=== PATIENT | female | born 1950 | race Caucasian/White ===

== ENCOUNTER → 2023-11-28 07:14 | Outpatient (REF) | payer MEDICARE, OTHER, SELFPAY | LOC: MRI 07:14 | PROVIDERS: ATTENDING PHYSICIAN Orthopaedic Surgery; FAMILY PHYSICIAN Internal Medicine | DX: M51.36 Other intervertebral disc degeneration, lumbar region (principal) | CPT/HCPCS: 72148 ==

== ENCOUNTER 2023-12-06 09:41 | Emergency (ER) | payer MEDICARE, OTHER, SELFPAY ==
--- NOTE | 2023-12-06 09:54 | ED.MUSCINJ ---
HPI-Injury
General
Chief Complaint: Musculo-Skeletal Complaint
Source: patient
Exam Limitations: none
Time Seen by Provider: 12/06/23 09:48
History of Present Illness-Injury
Initial Injury comments:
73-year-old female presents complaining of right ankle and foot pain starting this morning. She twisted her ankle going up in her garage. She notes pain and swelling to the lateral aspect of the foot and ankle. No other complaints at this time
Past History
Past History
ED Past Medical History: None and Other (Mitral valve prolapse)
ED Past Surgical History: Other (Hernia D&C)
Social History
Tobacco: Non-smoker
Alcohol: Occasional
Drug: None
Personal:
Living: with family
Employment: Employed
Family History
Family History: Hypertension; Negative Early CAD
Phy Exam
Physical Exam
Physical Exam:
General: Well-appearing female no acute respiratory distress
Musculoskeletal exam: Right foot and ankle ecchymotic swollen and tender over the lateral aspect. The distal fibula is tender the lateral foot is tender. No deformities. The medial malleolus is nontender. She is able to dorsiflex and
plantarflex. Resisted eversion of the foot reproduces pain
Vascular: 2+ dorsalis pedis pulse right foot
Injury Course
Orders/Labs/Results
Orders:
Orders
12/06/23 09:53
CR Ankle - Right Min 3 Views * Urgent
Comment:
Reason For Exam: pain, lateral ankle
CR Foot - Right Min 3 Views Urgent
Comment:
Reason For Exam: pain, lateral foot
12/06/23 11:16
Ortho Boot Right- Treatment ONCE
Short or tall?: Tall
MDM/Problems Addressed
Differential Diagnosis Includes:
Right foot pain and ankle pain and swelling. Consider sprain versus fracture versus tendon injury
X-rays right foot and ankle
*Critical Care Note
Total Time (30-74mins, 75-104mins- exclusive of procedures): Not Applicable
Update Note
Update Note:
X-rays of the right ankle and foot were personally visualized and demonstrate an avulsion fracture off the dorsal aspect of the midfoot. Radiology report agrees. There is no fracture of the ankle otherwise. I do suspect this is an acute injury
given the ecchymosis and swelling. Will place patient in an orthopedic boot and have her follow-up with orthopedic
ED Attending Note
-
Portions of this chart may have been created with voice recognition software.� Occasional wrong word or��sound alike� substitutions may have occurred due to the inherent limitations of voice recognition software.
Discharge Plan
Departure
Patient Disposition: Home (Routine Discharge)
Date of Disposition: 12/06/23
Time of Disposition: 11:17
Patient with high blood pressure during this ER visit?: No
Discharge Problem:
Foot fracture, right
Instructions: Muscle and Bone Pain (DC)
Prescriptions:
No Action
alum-mag hydroxide-simeth [Mag-Al Plus] 1 ML suspension
10 - 15 ml PO TID Qty: 6 0RF
omeprazole [Prilosec] 20 MG capsule,delayed release(DR/EC)
20 mg PO DAILY Qty: 20 0RF
Referrals:
Perez Yarbrough MD [Active] -
Jian Dye MD [Family Provider] -
Activity Restrictions/Additional Instructions:
Use boot when ambulating. Elevate for swelling. Continue with ibuprofen and Tylenol. Follow-up with orthopedics
Interventions
Interventions:
*Risk Screen - Suicide Last Done: 12/06/23 09:43
*General Assessment Last Done: 12/06/23 09:43
*Neglect/Abuse Screening Last Done: 12/06/23 09:43
ED- Fall Risk Assessment Last Done: 12/06/23 09:51
*ED COVID-19 Vaccine History Last Done: 12/06/23 09:43
ED-Musculoskeletal Assessment Last Done: 12/06/23 09:50
Discharge Date and Time
Print Language: FRISIAN
--- NOTE | 2023-12-06 09:58 | EDRN ---
Pt states she cannot use crutches or a walker d/t shoulder surgery
[2023-12-06 09:59] VITALS: BP 123/63
== END 2023-12-06 11:58 | disposition home or self-care (01) ==
LOC: EMR 09:41
PROVIDERS: EMERGENCY PHYSICIAN Emergency Medicine; FAMILY PHYSICIAN Internal Medicine
DX: S92.901A Unspecified fracture of right foot, initial encounter for closed fracture (principal); S90.31XA Contusion of right foot, initial encounter; X50.1XXA Overexertion from prolonged static or awkward postures, initial encounter; Y92.008 Other place in unspecified non-institutional (private) residence as the place of occurrence of the external cause; I34.1 Nonrheumatic mitral (valve) prolapse; Z91.041 Radiographic dye allergy status
CPT/HCPCS: 99283; 73610; 73630

== ENCOUNTER → 2024-01-25 14:12 | Outpatient (REF) | payer MEDICARE, OTHER, SELFPAY | LOC: HWRAD 14:12 | PROVIDERS: ATTENDING PHYSICIAN Obstetrics & Gynecology; FAMILY PHYSICIAN Internal Medicine | DX: Z78.0 Asymptomatic menopausal state (principal) | CPT/HCPCS: 77080 ==

== ENCOUNTER → 2024-08-18 14:17 | Outpatient (REF) | payer MEDICARE, OTHER, SELFPAY | LOC: HWRAD 14:17 | PROVIDERS: ATTENDING PHYSICIAN Student in an Organized Health Care Education/Training Program | DX: R91.1 Solitary pulmonary nodule (principal); Z80.1 Family history of malignant neoplasm of trachea, bronchus and lung | CPT/HCPCS: 71250 ==

== ENCOUNTER → 2025-04-15 10:49 | Outpatient (REF) | payer MEDICARE, OTHER, SELFPAY | LOC: HWRAD 10:49 | PROVIDERS: ATTENDING PHYSICIAN Internal Medicine Geriatric Medicine; REFERRING PHYSICIAN Internal Medicine Cardiovascular Disease | DX: E78.49 Other hyperlipidemia (principal) | CPT/HCPCS: 75571 ==